=== PATIENT | male | born 1935 | race Caucasian/White ===

== ENCOUNTER 2019-01-03 20:11 | Emergency (ER) | payer MEDICARE, BC ==
[~2019-01-03] VITALS: Ht 177.8 cm; Wt 79.8 kg
[~2019-01-03 20:11] MED LIST: AMLODIPINE BESYL5 MG PO; ATENOLOL50 MG PO; ATORVASTATIN CA40 MG PO; CLOPIDOGREL75 MG PO; DISOPYRAMIDE P150 MG PO; LUPRON DEPOT3.75 MG; PANTOPRAZOLE SO40 MG PO; PLETAL50 MG PO; ULTRAM50 MG PO
--- OUTSIDE RECORDS SUMMARY | 2019-01-03 20:14 | XMS REPORT | Clinical Summary ---
Author Author [facility] Address Unknown Phone Unavailable Care Team Providers Care Radio Board Operator Announcer Name Role Phone Sharpless PCP Allergies Comments Active Allergy Reactions Severity Noted Date Pt stateshas " no clue " what happens when he takes this. Dronedarone Low 02/10/2016 Pt states "has no clue" what happens when he takes this. Cholestyramine (With Low 02/10/2016 Sugar) Medications End Date Status Medication Sig Dispensed Refills Start Date Active disopyramide phosphate Take 150 mg 0 (NORPACE) 150 MG capsule by mouth 4 (four) times daily. Active cilostazol (PLETAL) 50 MG Take 50 mg by 0 tablet mouth 2 (two) times daily. Active clopidogrel (PLAVIX) 75 Take 75 mg by 0 mg tablet mouth daily. Active pantoprazole (PROTONIX) Take 40 mg by 0 40 MG tablet mouth daily. Active atenolol (TENORMIN) 50 MG Take 50 mg by 0 tablet mouth daily. Active atorvastatin (LIPITOR) 40 Take 40 mg by 0 MG tablet mouth daily. Active leuprolide (LUPRON) 1 Inject 0 mg/0.2 mL injection subcutaneousl y. Active aspirin 325 MG EC tablet Take 325 mg 0 by mouth daily. Active amLODIPine (NORVASC) 5 MG Take 5 mg by 0 tablet mouth daily. Active Problems Problem Noted Date PAD (peripheral artery disease) 02/10/2016 CAD (coronary artery disease) 02/10/2016 HTN (hypertension) 02/10/2016 Pacemaker 02/10/2016 Prostate cancer 02/10/2016 Lumbar spine pain 02/10/2016 Social History Date Tobacco Use Types Packs/Day Years Used Former Smoker Comments: Quit in 2013 Alcohol Use Drinks/Week oz/Week Comments Yes 6 Cans of 3.6 beer Sex Assigned at Date Recorded Not on file Industry Job Start Date Occupation Not on file Not on file Not on file Travel End Travel History Travel Start No recent travel history available. Last Filed Vital Signs Not on file Plan of Treatment Not on file Implants Device Identifier Shelf Expiration Date Model / Serial / Lot Implanted Type Area Manufactur er Smart Control Vascular Stent CORDIS Implanted: Qty: 1 on 02/11/2016 CORPORATIO N Results Not on fileafter 01/02/2018 Insurance Payer Benefit Subscriber ID Type Phone Address Plan / Group MEDICARE MEDICARE A xxxxxxxxxx Medicare B BLUE CROSS/BLUE SHIELD BCBS FED xxxxxxxxx O [phone] [address] [place] [address] Advance Directives For more information, please contact: [facility] [address] [place] [address] Date Inactivated Comments Code Status Date Activated 02/12/2016 1:23 PM Full Code 02/11/2016 9:04 PM This code status was determined by: Patient 02/11/2016 9:04 PM Full Code 02/11/2016 11:57 AM This code status was determined by: Patient
--- OUTSIDE RECORDS SUMMARY | 2019-01-03 20:14 | XMS REPORT | Clinical Summary ---
Author Author [facility] Address Unknown Phone Unavailable Care Team Providers Care Church Supervisor Name Role Phone João Hyde MD PCP Allergies No Known Allergies Medications Not on file Active Problems Not on file Encounters Care Team Description Date Type Specialty Haritha Myers MD 07/27/2018 Hospital Radiology Encounter Haritha Myers MD Adenocarcinoma of prostate; Secondary malignant neoplasm of bone and bone marrow 07/27/2018 Hospital Radiology Encounter Haritha Myers MD Adenocarcinoma of prostate; Secondary malignant neoplasm of bone and bone marrow 07/27/2018 Hospital Radiology Encounter Haritha Myers MD Adenocarcinoma of prostate (Primary Dx); Secondary malignant neoplasm of bone and bone marrow 05/01/2018 Transcribe Access Orders after 01/02/2018 Social History Date Tobacco Use Types Packs/Day Years Used Never Assessed Sex Assigned at Date Recorded Not on file Industry Job Start Date Occupation Not on file Not on file Not on file Travel End Travel History Travel Start No recent travel history available. Last Filed Vital Signs Not on file Plan of Treatment Health Maintenance Due Date Last Done Comments SHINGLES VACCINES (#1) 1983 65+ PNEUMOCOCCAL VACCINE 1998 (1 of 2 - PCV13) PNEUMOCOCCAL 1998 POLYSACCHARIDE VACCINE AGE 65 AND OVER INFLUENZA VACCINE 06/07/2018 Procedures Comments Procedure Name Priority Date/Time Associated Diagnosis NM BONE SCAN WHOLE BODY Routine 07/27/2018 Adenocarcinoma of 1:10 PM CDT prostate Secondary malignant neoplasm of bone and bone marrow CT CHEST W CONTRAST Routine 07/27/2018 Adenocarcinoma of ABDOMEN W CONTRAST PELVIS 12:26 PM CDT prostate W CONTRAST Secondary malignant neoplasm of bone and bone marrow POC CREATININE Routine 07/27/2018 9:58 AM CDT ESTIMATED GFR Routine 07/27/2018 9:58 AM CDT after 01/02/2018 Results * NM Bone Scan Whole Body (07/27/2018 1:10 PM CDT) Narrative Performed At PROCEDURE:NM BONE SCAN WHOLE BODY [facility] INDICATION:Prostate cancer.Bone metastasis. COMPARISON:Bone scan dated 08/24/2017, CT scan of the chest, abdomen, and pelvis performed on same day. TECHNIQUE: Approximately three hours after the IV administration of 25 mCi of Tc-99m labeled MDP, routine whole body planar bone scanning was performed in the anterior and posterior projections. FINDINGS:Osseous metastatic disease has improved.Previously described lesions have decreased in terms of size, number, and intensity.No new lesions.Residual disease is noted in the spine, sternum, right humerus, pelvis, and right femur. IMPRESSION: 1.Interval improvement of osseous metastatic disease. [id number] Procedure Note Interface, Radiology Results Incoming - 07/27/2018 2:09 PM CDT PROCEDURE: NM BONE SCAN WHOLE BODY INDICATION: Prostate cancer. Bone metastasis. COMPARISON: Bone scan dated 08/24/2017, CT scan of the chest, abdomen, and pelvis performed on same day. TECHNIQUE: Approximately three hours after the IV administration of 25 mCi of Tc-99m labeled MDP, routine whole body planar bone scanning was performed in the anterior and posterior projections. FINDINGS: Osseous metastatic disease has improved. Previously described lesions have decreased in terms of size, number, and intensity. No new lesions. Residual disease is noted in the spine, sternum, right humerus, pelvis, and right femur. IMPRESSION: 1. Interval improvement of osseous metastatic disease. [facility]-[id number] Performing Organization Address City/State/Zipcode Phone Number [facility] [address] [place] [address] * CT Chest W Contrast Abdomen W Contrast Pelvis W Contrast (07/27/2018 12:26 PM CDT) Narrative Performed At PROCEDURE:CT CHEST W CONTRAST ABDOMEN W CONTRAST PELVIS W CONTRAST [facility] CLINICAL HISTORY:C61 Malignant neoplasm of prostate, C79.51 Secondary malignant neoplasm of bone, PROSTATE CANCER W METS TO BONE COMPARISON:August 24, 2017 TECHNIQUE: Contiguous 5 mm axial images were obtained of the lung apices to the pubic symphysis following injection of intravenous iodinated contrast media without adverse reaction on a multidetector CT scanning using helical scanning technique followed by 2-D sagittal and coronal reconstruction.Oral contrast was given without adverse reaction.. The dose length product for this procedure was 669 mGy-cm. CT imaging was performed with iterative reconstruction technique and/or automated exposure control to reduce radiation dose. FINDINGS: CT CHEST- 1. Lung parenchymal window settings demonstrate multiple blebs and bulla in the upper lobes suspicious for centrilobular emphysema. Note is made of coarse calcifications in the anterior segment of the right upper lobe unchanged from previous and represents benign findings. Note is made of calcified pleural plaques consistent with prior asbestos exposure. Note is made of focal air trapping in both lower lobes as before suggestive of bronchospasm.. Few secretions are demonstrated anterior to the right tracheal wall. 2. Mediastinal window settings demonstrate no supraclavicular, axillary, mediastinal, or hilar lymphadenopathy is seen. A persistent contour defect is seen in the lateral wall of the aortic arch unchanged from previous. Calcified atheromatous plaque formation is seen in the thoracic aorta. Note is made of coronary artery calcifications. A sebaceous cyst is present in the anterior mid chest wall and measures 2.3 cm x 1.3 cm in the cutaneous and subcutaneous compartment. This is slightly larger than on the prior examination. 3. Sagittal and coronal reconstructions demonstrate an osteoblastic metastatic deposit in the manubrium as well as the L5 vertebral body. 4. Bone window settings demonstrate osteoblastic metastasis as described above. Tiny osteoblastic lesions are seen lateral borders of both scapula as well as the left scapular spine. CT ABDOMEN- 1. A left upper pole renal cortical cyst is present measuring 3.5 cm diameter. Tiny nonobstructing calculi are seen in the mid right kidney with the largest calculus in the cluster measuring 3.9 mm diameter. Otherwise, no abnormality of the intra-abdominal solid organs is seen. 2. The opacified small and large bowel are unremarkable. No dilatation of the small or large bowel is seen. The appendix isnot visualized. 3. No retroperitoneal lymphadenopathy, mesenteric masses, or intra-abdominal fluid collections are seen. 4. Calcified atheromatous plaque formation is demonstrated in the abdominal aorta with abdominal aortic aneurysm just above the iliac bifurcation measuring 2.7 cm in maximal diameter. Note is made of bilateral common iliac stents.. The gallbladderis normal. 5. Sagittal and coronal reconstructions demonstrate moderate superior endplate central compression fracture of 30-40% at L1. CT PELVIS- 1. No pelvic masses, fluid collections, or lymphadenopathy is seen. No inguinal lymphadenopathy is noted. 2. Bone window settings demonstrate no osteolytic or osteoblastic lesions. No acute bony abnormality is seen. 3. Multiple seeds are seen in the prostate at bed. Mild bladder wall thickening is noted. IMPRESSION: No significant interval change. Centrilobular emphysema as before. Findings of prior asbestos exposure. Osteoblastic metastasis. [id number] . Procedure Note Hm Interface, Radiology Results Incoming - 07/27/2018 2:36 PM CDT PROCEDURE: CT CHEST W CONTRAST ABDOMEN W CONTRAST PELVIS W CONTRAST CLINICAL HISTORY: C61 Malignant neoplasm of prostate, C79.51 Secondary malignant neoplasm of bone, PROSTATE CANCER W METS TO BONE COMPARISON: August 24, 2017 TECHNIQUE: Contiguous 5 mm axial images were obtained of the lung apices to the pubic symphysis following injection of intravenous iodinated contrast media without adverse reaction on a multidetector CT scanning using helical scanning technique followed by 2-D sagittal and coronal reconstruction.Oral contrast was given without adverse reaction.. The dose length product for this procedure was 669 mGy-cm. CT imaging was performed with iterative reconstruction technique and/or automated exposure control to reduce radiation dose. FINDINGS: CT CHEST- 1. Lung parenchymal window settings demonstrate multiple blebs and bulla in the upper lobes suspicious for centrilobular emphysema. Note is made of coarse calcifications in the anterior segment of the right upper lobe unchanged from previous and represents benign findings. Note is made of calcified pleural plaques consistent with prior asbestos exposure. Note is made of focal air trapping in both lower lobes as before suggestive of bronchospasm.. Few secretions are demonstrated anterior to the right tracheal wall. 2. Mediastinal window settings demonstrate no supraclavicular, axillary, mediastinal, or hilar lymphadenopathy is seen. A persistent contour defect is seen in the lateral wall of the aortic arch unchanged from previous. Calcified atheromatous plaque formation is seen in the thoracic aorta. Note is made of coronary artery calcifications. A sebaceous cyst is present in the anterior mid chest wall and measures 2.3 cm x 1.3 cm in the cutaneous and subcutaneous compartment. This is slightly larger than on the prior examination. 3. Sagittal and coronal reconstructions demonstrate an osteoblastic metastatic deposit in the manubrium as well as the L5 vertebral body. 4. Bone window settings demonstrate osteoblastic metastasis as described above. Tiny osteoblastic lesions are seen lateral borders of both scapula as well as the left scapular spine. CT ABDOMEN- 1. A left upper pole renal cortical cyst is present measuring 3.5 cm diameter. Tiny nonobstructing calculi are seen in the mid right kidney with the largest calculus in the cluster measuring 3.9 mm diameter. Otherwise, no abnormality of the intra-abdominal solid organs is seen. 2. The opacified small and large bowel are unremarkable. No dilatation of the small or large bowel is seen. The appendix is not visualized. 3. No retroperitoneal lymphadenopathy, mesenteric masses, or intra-abdominal fluid collections are seen. 4. Calcified atheromatous plaque formation is demonstrated in the abdominal aorta with abdominal aortic aneurysm just above the iliac bifurcation measuring 2.7 cm in maximal diameter. Note is made of bilateral common iliac stents.. The gallbladder is normal. 5. Sagittal and coronal reconstructions demonstrate moderate superior endplate central compression fracture of 30-40% at L1. CT PELVIS- 1. No pelvic masses, fluid collections, or lymphadenopathy is seen. No inguinal lymphadenopathy is noted. 2. Bone window settings demonstrate no osteolytic or osteoblastic lesions. No acute bony abnormality is seen. 3. Multiple seeds are seen in the prostate at bed. Mild bladder wall thickening is noted. IMPRESSION: No significant interval change. Centrilobular emphysema as before. Findings of prior asbestos exposure. Osteoblastic metastasis. [id number] . Performing Organization Address City/[facility]/Zipcode Phone Number [facility] [address] [place] [address] * Estimated GFR (07/27/2018 9:58 AM CDT) Estimated GFR 77 mL/min/1.73 m2 [facility] DEPARTMENT OF Comment: PATHOLOGY AND CatergoryUnitsInte GENOMIC MEDICINE rpretation G1 >=90 Normal or high G2 60-89Mildly decreased [id number] Mildly to moderately decreased [id number] Moderately to severely decreased G4 15-29Severely decreased G5 <15Kidney failure The eGFR was calculated using the Chronic Kidney Disease Epidemiology Collaboration (CKD-EPI) equation. Interpretation is based on recommendations of the National Kidney Foundation-Kidney Disease Outcomes Quality Initiative (NKF-KDOQI) published in 2014. Specimen Blood Performing Organization Address City/State/Zipcode Phone Number [facility] [place] [address] [place] [address] PATHOLOGY AND GENOMIC MEDICINE * POC creatinine (07/27/2018 9:58 AM CDT) POC creatinine 0.9 0.7 - 1.2 mg/dl [facility] DEPARTMENT OF PATHOLOGY AND GENOMIC MEDICINE Specimen Blood Performing Organization Address City/State/Zipcode Phone Number [facility] [place] [address] [place] [address] PATHOLOGY AND GENOMIC MEDICINE after 01/02/2018 Insurance Payer Benefit Subscriber ID Type Phone Address Plan / Group MEDICARE MEDICARE xxxxxxxxxx Medicare [place], [place] PART A AND B BCBS BCBS xxxxxxxxx PPO CHOICE PPO/ERIC [place] PPO Advance Directives Patient has advance care planning documents on file. For more information, jovany espinosa contact: Edwin Davidson [address] [place] [address]
--- NOTE | 2019-01-03 20:51 | Diagnostic Imaging Report ---
LEFT SHOULDER X-RAY - 2 VIEWS HISTORY: ^LEFT SHOULDER PAIN ^[id number] ^[birth year]32 ^Y COMPARISON: None available. FINDINGS: Bones: No acute displaced fracture. Status post fixation of the left clavicle with plates and screws. Hardware appears intact. Osseous alignment is within normal limits. Joints: The joint spaces are well-maintained. Soft tissues: The soft tissues appear unremarkable. IMPRESSION: No acute radiographic abnormality. Status post open reduction and internal fixation of the left clavicle. Hardware appears intact. Signed by: Dr. Hellen Quezada M.D. on 01/03/2019 8:48 PM
--- NOTE | 2019-01-03 20:52 | Diagnostic Imaging Report ---
EXAMINATION: CHEST 2 VIEWS INDICATION: ^LEFT SHOULDER PAIN ^[id number] ^[birth year]32 ^Y COMPARISON: Left shoulder x-ray 01/03/2019 FINDINGS: PA and lateral views TUBES and LINES: 2-lead pacemaker device overlying the left mid chest with leads overlying the superior right uterine and right ventricle. LUNGS: Lungs are well inflated. Increased interstitial lung markings in both lung bases may represent atelectasis and scarring. There is no evidence of pneumonia or pulmonary edema. PLEURA: No pleural effusion or pneumothorax. Bilateral apical convex opacity, left greater than right. HEART AND MEDIASTINUM: The cardiac silhouette is within normal limits. Tortuous thoracic aorta. BONES AND SOFT TISSUES: Status post fixation of the left clavicle with intact hardware. Soft tissues are unremarkable. UPPER ABDOMEN: No free air under the diaphragm. IMPRESSION: Bilateral upper lobes convex opacity may represent pleural thickening. Consider CT chest for further evaluation. Signed by: Dr. Hellen Quezada M.D. on 01/03/2019 8:49 PM
[2019-01-03 20:54] LABS: INR 0.94; PROTHROMBIN TIME 13.4 seconds (11.9-14.5)
[2019-01-03 20:55] LABS: PARTIAL THROMBOPLASTIN TIME 33.1 seconds (23.8-35.5)
[2019-01-03 21:05] LABS: ALBUMIN 3.4 g/dL (3.5-5.0); ALBUMIN/GLOBULIN RATIO 1.3 (0.8-2.0); ANION GAP 11.1 mmol/L (8-16); CALCIUM 9.4 mg/dL (8.4-10.2); CREATININE, SERUM 1.18 mg/dL (0.72-1.25); POTASSIUM 4.1 mmol/L (3.5-5.1)
[2019-01-03 21:13] LABS: CREATINE KINASE MB 0.6 ng/mL (0-5.0)
[2019-01-03] MEDS ORDERED: MORPHINE SULFATE 5 MG/ML VIAL IV ONE (21:30)
[2019-01-03] MEDS ORDERED: MORPHINE SULFATE INJ 4 MG/ML INJ 1ML IV ONE (21:45)
[2019-01-03] MEDS ORDERED: KETOROLAC TROMETHAMINE 30 MG/ML VIAL IV ONE (21:45)
[2019-01-03] MEDS ORDERED: ONDANSETRON HCL INJ 2MG/ML 2ML 2 MG/ML VIAL IV ONE (21:45)
[2019-01-03] MEDS ORDERED: ORPHENADRINE CITRATE 30 MG/ML VIAL IM ONE (21:45)
[2019-01-03 21:46] LABS: BASOPHILS % 0.2 % (0.0-1.0); EOSINOPHILS # (AUTO) 0.2 (0.0-0.4); EOSINOPHILS % 2.3 % (0.0-6.0); HEMATOCRIT 29.3 % (38.2-49.6); HEMOGLOBIN 9.1 g/dL (14.0-18.0); LYMPHOCYTES % 20.3 % (18.0-39.1); MEAN CORPUSCULAR HEMOGLOBIN 32.2 pg (28-32); MEAN CORPUSCULAR HGB CONC 31.1 g/dL (31-35); MEAN CORPUSCULAR VOLUME 103.5 fL (81-99); MONOCYTES # (AUTO) 1.2 (0.2-0.8); MONOCYTES % 12.4 % (4.4-11.3); NEUTROPHILS # (AUTO) 6.3 (2.1-6.9); PLATELET COUNT 210 x10e3/uL (140-360); RED BLOOD COUNT 2.83 x10e6/uL (4.3-5.7); RED CELL DISTRIBUTION WIDTH 14.1 % (11.7-14.4)
[2019-01-03 23:05] VITALS: BP 114/70
== END 2019-01-03 23:41 | disposition home or self-care (01) ==
LOC: ER 20:11
DX: M25.512 Pain in left shoulder (principal); S46.812A Strain of other muscles, fascia and tendons at shoulder and upper arm level, left arm, initial encounter; I10 Essential (primary) hypertension; Z85.46 Personal history of malignant neoplasm of prostate
CPT/HCPCS: 36415; 71046; 73030; 80053; 82550; 82553; 84484; 85025; 85610; 85730; 93005; 99284; J1885; J2270; J2360; J2405